=== PATIENT | male | born 1950 | race Caucasian/White ===

== ENCOUNTER 2017-03-20 09:59 | Inpatient (IN) | payer OTHER ==
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
[2017-03-20] MEDS ORDERED: HYDROmorphONE/DILAUDID 1 MG/ML SYR ONE ×3 (10:02→11:31)
[2017-03-20] MEDS ORDERED: IOPAMIDOL (ISOVUE-300) 100 ML BTL ONE (10:07)
[2017-03-20 10:22] LABS: % IMMATURE GRANULYOCYTES 0.6 % (0.0-1.1); ABSOLUTE IMMATURE GRANULOCYTES 0.06 10^3/uL (0.00-0.10); ADD DIFF? NO; ADD MORPH? NO; ADD SCAN? NO; ATYPICAL LYMPHOCYTE FLAG 0 (0-99); FRAGMENT RBC FLAG 0 (0-99); HEMATOCRIT 46.3 % (40.0-51.0); HEMOGLOBIN 16.4 g/dL (13.7-17.5); LEFT SHIFT FLG 10 (0-99); LIPEMIA HEMOLYSIS FLAG 90 (0-99); MEAN CELL HEMOGLOBIN 31.8 pg (27.9-34.1); MEAN CELL HEMOGLOBIN CONCENTR. 35.4 g/dL (32.4-36.7); MEAN CELL VOLUME 89.9 fL (81.5-99.8); MEAN PLATELET VOLUME 11.5 fL (8.7-11.7); PLATELET CLUMPS FLAG 10 (0-99); PLATELET COUNT 163 10^3/uL (150-400); RED BLOOD CELL COUNT 5.15 10^6/uL (4.40-6.38); RED CELL DISTRIBUTION WIDTH 12.5 % (11.5-15.2)
[2017-03-20] MEDS ORDERED: LET GEL TOPICAL 1 EA SYR TP ONE (10:30)
[2017-03-20 10:32] LABS: INR 2.22 (0.83-1.16); PROTIME(PATIENT) 24.8 SEC (12.0-15.0)
[2017-03-20 10:33] LABS: APTT 35.1 SEC (23.0-38.0)
[2017-03-20] MEDS ORDERED: HYDROmorphONE/DILAUDID 2 MG/ML INJ IVP ONE ×2 (10:36→12:28)
[2017-03-20 10:46] LABS: ANION GAP 13 mEq/L (8-16); CALCIUM 9.8 mg/dL (8.5-10.4); CARBON DIOXIDE 23 mEq/l (22-31); CHLORIDE 104 mEq/L (97-110); CREATININE 0.7 mg/dL (0.7-1.3); GLOMERULAR FILTRATION RATE > 60; GLUCOSE 88 mg/dL (70-100); SODIUM 140 mEq/L (134-144)
[2017-03-20] MEDS ORDERED: PHYTONADIONE 10 MG in NS 50 ML IV ONE (11:29)
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
[2017-03-20] MEDS ORDERED: ONDANSETRON 4 MG/2 ML VIAL IVP PRN (13:10)
[2017-03-20] MEDS: HYDROCODONE/APAP 5/325 TAB PO PRN ×2 (13:43→15:23)
[2017-03-20] MEDS: DIAZEPAM 5 MG TAB PO PRN ×3 (13:43→21:24)
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
[2017-03-20] MEDS ORDERED: IBUPROFEN 600 MG TAB PO SCH (14:00)
[2017-03-20] MEDS ORDERED: LACTULOSE 20 GM/30 ML UDCUP PO PRN (16:27)
[2017-03-20] MEDS ORDERED: MAGNESIUM HYDROXIDE 30 ML UDCUP PO PRN (16:27)
[2017-03-20] MEDS ORDERED: POLYETHYLENE GLYCOL 3350 17 GM PKT PO PRN (16:27)
[2017-03-20] MEDS ORDERED: BISACODYL 10 MG SUPP PR PRN (16:27)
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
[2017-03-20] MEDS: HYDROmorphONE/DILAUDID 2 MG TAB PO PRN ×2 (17:30→21:24)
[2017-03-20] MEDS: HYDROmorphONE/DILAUDID 1 MG/ML SYR IVP PRN (17:30)
[2017-03-20] MEDS ORDERED: ceFAZolin 2 GM/DEXTROSE 100 ML IV ONE (18:56)
[2017-03-20] MEDS ORDERED: FAMOTIDINE 20 MG TAB PO ONE (18:56)
[2017-03-20 19:59] LABS: INR 1.57 (0.83-1.16); PROTIME(PATIENT) 18.8 SEC (12.0-15.0)
[2017-03-20] MEDS: SENNOSIDES/DOCUSATE SODIUM TAB PO SCH (21:25)
[2017-03-21] MEDS: DIAZEPAM 5 MG TAB PO PRN ×2 (04:22→20:23)
[2017-03-21] MEDS: HYDROmorphONE/DILAUDID 2 MG TAB PO PRN ×2 (04:23→20:23)
[2017-03-21 04:58] LABS: INR 1.27 (0.83-1.16); PROTIME(PATIENT) 15.9 SEC (12.0-15.0)
[2017-03-21] MEDS ORDERED: POLYMYXIN B SULFATE 500,000 UNIT/10 ML SYR IRR ONE (07:14)
[2017-03-21] MEDS ORDERED: BUPIVACAINE/EPI 0.5% 30 ML SDV ONE (07:14)
[2017-03-21] MEDS ORDERED: BACITRACIN 50,000 UNITS/10 ML SYR IRR ONE (07:15)
[2017-03-21] MEDS: HYDROmorphONE/DILAUDID 1 MG/ML SYR IVP PRN ×2 (07:21→14:29)
[2017-03-21] MEDS ORDERED: CEFAZOLIN 2 GM/DEXTROSE/100 ML BAG IV ONE (07:52)
[2017-03-21] MEDS ORDERED: MIDAZOLAM 2 MG/2 ML VIAL ONE (08:01)
[2017-03-21] MEDS ORDERED: fentaNYL 100 MCG/2 ML INJ ONE ×4 (08:03→11:48)
[2017-03-21] MEDS ORDERED: PROPOFOL/EMULSION 500 MG/50 ML BOTTLE IV ONE ×2 (08:04)
[2017-03-21] MEDS ORDERED: ROCURONIUM 100 MG/10 ML VIAL ONE (08:51)
[2017-03-21] MEDS ORDERED: GLYCOPYRROLATE 0.2 MG/1 ML VIAL ONE ×3 (08:51→11:20)
[2017-03-21] MEDS ORDERED: ONDANSETRON 4 MG/2 ML VIAL ONE (09:05)
[2017-03-21] MEDS ORDERED: DEXAMETHASONE 4 MG/ML VIAL ONE (09:05)
[2017-03-21] MEDS: SENNOSIDES/DOCUSATE SODIUM TAB PO SCH ×2 (09:58→20:28)
[2017-03-21] MEDS ORDERED: NEOSTIGMINE METHYLSULFATE 5 MG/5 ML SYR ONE (11:20)
[2017-03-21] MEDS ORDERED: CYCLOBENZAPRINE 10 MG TAB PO PRN (11:29)
[2017-03-21] MEDS ORDERED: DIPHENOXYLATE/ATROPINE LOMOTIL 1 TAB PO PRN (11:29)
[2017-03-21] MEDS ORDERED: PROMETHAZINE HCL 25 MG/ML INJ IVP PRN (11:29)
[2017-03-21] MEDS ORDERED: METOCLOPRAMIDE 10 MG/2 ML VIAL IVP PRN (11:29)
[2017-03-21] MEDS ORDERED: TEMAZEPAM 15 MG CAP PO PRN (11:29)
[2017-03-21] MEDS ORDERED: diphenhydrAMINE 25 MG CAP PO PRN (11:29)
[2017-03-21] MEDS ORDERED: PHARMACY PAIN CONSULT 1 EA MISC PRN (11:29)
--- NOTE | 2017-03-21 11:29 | POSTOPPROG ---
Post Op Note Date of Operation: 03/21/17 Surgeon: Lizandro Ariza Cap Coverer: Jimenez Osorio PA-C Pre-op Diagnosis: Right subcapital femur fracture Post-op Diagnosis: Right subcapital femur fracture Procedure: Right total hip arthroplasty w/ acetabular bone graft Findings: As above, please see full dictation for detains Inf/Abcess present in the surg proc area at time of surgery?: No Depth: Deep Incisional (Fascial) EBL: Greater than 1000 Complications: None Drains: Hemovac
[2017-03-21] MEDS ORDERED: LR 1,000 ML IV SCH (11:30)
[2017-03-21] MEDS ORDERED: HYDROmorphONE/DILAUDID 2 MG/ML INJ ONE (11:48)
[2017-03-21] MEDS ORDERED: ACETAMINOPHEN 325 MG TAB PO SCH (12:00)
--- NOTE | 2017-03-21 12:12 | GOP ---
[f rep st] OPERATIVE REPORT DATE OF OPERATION: 03/20/2017 SURGEON: Lizandro Ariza MD FIELD SERVICE POULTRY TECHNICIAN: Jimenez. ANESTHESIA: General. PREOPERATIVE DIAGNOSIS: Right hip fracture, Garden 3 through the femoral neck. POSTOPERATIVE DIAGNOSIS: 1. Right hip fracture, Garden 3 through the femoral neck. 2. Mild osteoarthritis, right hip. PROCEDURE PERFORMED: Right total hip arthroplasty for right femoral neck fracture. FINDINGS: DESCRIPTION OF PROCEDURE: The patient was taken to the operative room, administered general anesthe jackelin, placed in the left lateral decubitus position, had his right hip and lower extremity prepped an d draped in normal sterile fashion. A posterior lateral incision was made just posterior to the are a of a skin excoriation. It was carried through dermal subcutaneous tissues. Sharp dissection was performed down to the level of the IT band. The IT band was split distally and extended proximally over the greater trochanter. The Charnley retractors were put in place. The hip was internally rot ated. The external rotators were brought under tension. The piriformis and external rotators were taken down using cautery. The femoral head was then levered out using a corkscrew. The fracture se gment was noted to be significantly displaced. The next segment was re-cut down to 1 cm level above the lesser trochanter. The acetabulum was then visualized and retractors were positioned. A moder ate amount of articular arthrosis was noted. Therefore, we proceeded with a total hip, rather than a bipolar. The fatty tissue was removed from Pulvinar. Reaming commenced with a size 48 and extend ed up to a size 63. We broached the medial wall, and therefore some bone graft was placed medially that was harvested from the femoral head. The cup trial was positioned. The trial insert was posit ioned. We subsequently addressed the femoral side. A box osteotome was used to remove bone from th e greater trochanter. A tapered starting reamer was placed down through the canal. The power reami ng began with a size 7, and extended up to a size 11. We then broached from a size 8 to a size 11. The trochanter was reamed laterally to get a little larger size 11 broach in. We subsequently tria led with a 0 degree neck length. Intraoperative films were initially taken, showing the head segmen t a little more medialized. We therefore went from the original trial cup and reamed up the acetabu lum a little larger. We ended up putting in a 64 titanium cup with holes. Three screws were placed superiorly using the drill guide system. These measured 45 mm in length x2 and 35 mm in length x1. Each screw had good purchase. The bone graft was packed behind the cup prior to its placement. Joyce howard subsequently placed the real liner in place. We elected to go with a 10 degree posterior liner sh suzy. This was impacted into position. The real stem was impacted into position. This was a Secure Fit Max 127 degree neck angle hip stem, size 11, with a 40 mm neck length. The trunnion was dried. A trial reduction was done with the 0, and this was felt to be appropriate, with leg lengths felt to be close to normal. We subsequently put the knee through a flexion internal rotation range of mo tion. It was felt to be stable. Extension, external rotation, and range of motion was felt to be s table. The trial head was brought out. A biologic Delta ceramic C taper femoral head was then impa cted onto position. This was a 36 mm outer diameter, +0 neck length head. We again trialed it with the real head in place, and it was felt to be stable. Thorough lavage was performed. The piriform is and posterior hip capsule was reapproximated using #2 Ethibond sutures brought through drill hole s in the greater trochanter. The iliotibial band was reapproximated with a #0 Vicryl suture in an i nterrupted [id number] fashion. A 3/16ths inch drain was placed deeply prior to closure. The s ubcutaneous tissues were closed with a 2-0 Vicryl suture, followed by closure of the dermis with sta ples. Sterile compression dressing was applied. The drain was hooked up. The patient was placed i nto HALIMA hose and pneumatic compression stockings. He tolerated the procedure well, was transferred back to recovery in stable condition. There were no operative complications. COMPLICATIONS: None. /[id number]/MODL
[2017-03-21 12:36] LABS: HEMATOCRIT 39.3 % (40.0-51.0); HEMOGLOBIN 13.9 g/dL (13.7-17.5)
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
[2017-03-21] MEDS: ceFAZolin 2 GM/DEXTROSE 100 ML IV SCH ×2 (14:33→21:56)
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
[2017-03-21] MEDS ORDERED: WARFARIN SODIUM 5 MG TAB PO ONE (16:00)
[2017-03-21] MEDS ORDERED: BACITRACIN OINTMENT 1 PACKET TP ONE (16:14)
[2017-03-21] MEDS: LIDOCAINE 5% 1 EA PATCH TD SCH (18:14)
[2017-03-21] MEDS: FAMOTIDINE 20 MG TAB PO SCH (20:28)
[2017-03-21] MEDS: PATCH REMOVAL 1 EA PATCH TD SCH (21:10)
[2017-03-21] MEDS: ACETAMINOPHEN 500 MG TAB PO SCH (21:55)
[2017-03-22 05:08] LABS: % IMMATURE GRANULYOCYTES 0.3 % (0.0-1.1); ABSOLUTE IMMATURE GRANULOCYTES 0.04 10^3/uL (0.00-0.10); ADD DIFF? NO; ADD MORPH? NO; ADD SCAN? NO; ATYPICAL LYMPHOCYTE FLAG 0 (0-99); FRAGMENT RBC FLAG 0 (0-99); HEMATOCRIT 29.4 % (40.0-51.0); LEFT SHIFT FLG 0 (0-99); LIPEMIA HEMOLYSIS FLAG 90 (0-99); MEAN CELL HEMOGLOBIN 31.2 pg (27.9-34.1); MEAN CELL VOLUME 91.6 fL (81.5-99.8); MEAN PLATELET VOLUME 11.7 fL (8.7-11.7); PLATELET CLUMPS FLAG 20 (0-99); PLATELET COUNT 127 10^3/uL (150-400); RED BLOOD CELL COUNT 3.21 10^6/uL (4.40-6.38); RED CELL DISTRIBUTION WIDTH 12.4 % (11.5-15.2)
[2017-03-22 05:19] LABS: INR 1.35 (0.83-1.16); PROTIME(PATIENT) 16.7 SEC (12.0-15.0)
[2017-03-22] MEDS: ACETAMINOPHEN 500 MG TAB PO SCH ×3 (05:20→21:44)
[2017-03-22 05:21] LABS: ANION GAP 5 mEq/L (8-16); CALCIUM 8.6 mg/dL (8.5-10.4); CARBON DIOXIDE 22 mEq/l (22-31); CHLORIDE 105 mEq/L (97-110); CREATININE 0.8 mg/dL (0.7-1.3); GLOMERULAR FILTRATION RATE > 60; GLUCOSE 136 mg/dL (70-100); POTASSIUM 4.5 mEq/L (3.5-5.2); SODIUM 132 mEq/L (134-144)
[2017-03-22] MEDS: FAMOTIDINE 20 MG TAB PO SCH ×3 (08:13→21:45)
[2017-03-22] MEDS: SENNOSIDES/DOCUSATE SODIUM TAB PO SCH ×2 (08:13→21:44)
--- NOTE | 2017-03-22 08:21 | TRAUMAPN ---
Assessment/Plan: PAD#1 POD#0 Assessment: Poor right breath sounds post op, Hx right 6&7 rib fx S/p right hip arthroplasty moderate bloody drainage in closed suction drainage system. INR 1.27 No other complaints confused as to year but otherwise intact neurologically Plan: CXR suggest holding anticoag with heparin drip until tomorrow PAD#2 POD#1 03/22/2017 Assessment: chest discomfort/rib pain discussed. his pain is 1 when sitting but spasm with movement takes him to an 8 or 9. CXR yesterday showed no PTX Pain control regimen discussed. Epidural offered but declined. No stool/flatus yet Abrasions stable S/P right hip arthroplasty Plan: Will await Dr Ariza's guidance as per discharge. Subjective: I have right rib pain with movement. Objective: Vital Signs Temp Pulse Resp BP Pulse Ox 36.8 C 74 18 113/62 95 03/22/17 08:00 03/22/17 08:00 03/22/17 08:00 03/22/17 08:00 03/22/17 08:00 Laboratory Results 03/22/17 04:25 03/22/17 04:25 03/21/17 03/22/17 03/23/17 05:59 05:59 05:59 Intake Total 5500 Output Total 750 2745 Balance -750 2755 PT 16.7 SEC (12.0-15.0) H 03/22/17 04:52 INR 1.35 (0.83-1.16) H 03/22/17 04:52 - C-Spine Clearance Cervical Spine Cleared: Yes Provider who Cleared Cervical Spine: Noe Physical Exam - Physical Exam General Appearance: WD/WN, alert, mild distress Neck: non-tender, full range of motion, supple Respiratory: lungs clear, normal breath sounds, other (right rib pain with movement. IS to > 2000) Cardiac/Chest: regular rate, rhythm Abdomen: normal bowel sounds, non-tender, soft Male Genitalia: deferred Rectal: deferred Back: Normal inspection Skin: normal color, warm/dry Neuro/Psych: no motor/sensory deficits, alert, normal mood/affect, oriented x 3 Time Spent w/Patient (minutes): 25
[2017-03-22] MEDS: oxyCODONE IR 5 MG TAB PO PRN ×2 (08:35→17:20)
--- NOTE | 2017-03-22 10:22 | SOAPPROG ---
SOAP Progress Note Assessment/Plan: Assessment/Plan: Right subcapital femur fracture s/p R JONI w/ acetabular bone graft perfomed by Dr. Ariza 03/20/2017, POD#1 -Cont PT/OT, pt is to be PWB on RLE, no more than 50#, posterior hip precuations -Cont current PO pain regimen as tolerated -Drain in place, output 445 overnight, likely d/c drain tomorrow am -Cont SCDs and TEDs for VTE mechanical prophylaxis -Hold warfarin per trauma service, pt on heparin drip. If pt is d/c'd on warfarin, will likely need cont management w/ Dr. Li -Possible d/c tomorrow pending PT/OT approval, successful PO pain management, and trauma service approval 03/22/17 10:19 03/22/17 13:41 Subjective: Pt seen at bedside. No complaints of significant pain at this time. He states he is tolerating his diet and medications well, and has been up w/ PT/OT. He is accompanied by his at time of exam. We have discussed the surgical findings, recuperative timeline, and criteria for discharge today. They have no additional concerns or complaints at this time. Objective: Vital Signs Temp Pulse Resp BP Pulse Ox 36.8 C 74 18 113/62 95 03/22/17 08:00 03/22/17 08:00 03/22/17 08:00 03/22/17 08:00 03/22/17 08:00 Laboratory Results 03/22/17 04:25 03/22/17 04:25 03/21/17 03/22/17 03/23/17 05:59 05:59 05:59 Intake Total 5500 Output Total 750 2745 Balance -750 2755 PT 16.7 SEC (12.0-15.0) H 03/22/17 04:52 INR 1.35 (0.83-1.16) H 03/22/17 04:52 A&Ox3, appropriate mood and affect, pleasant and cooperative with exam. VSS. Exam of RLE reveals post operative dressing, CDI, intact AMARA drain (output ~445 over last 24 hrs). No significant surrounding erythema, calor, discharge or induration noted. Thigh compartment is supple, post calves are NTTP, no palpable vascular cords, neg Kami's bilat. Abduction pillow in place. Pt has intact light touch sensation distally, and moves leg and foot well. DNVI BLE. ICD10 Worksheet Patient Problems: Problems Problem Status Onset Fracture of femoral neck Acute Multiple abrasions Acute Right rib fracture Acute Concussion with less than 1 hour loss of consciousness Active Fracture of acetabulum Active Kevan hematuria Active
[2017-03-22] MEDS: LIDOCAINE 5% 1 EA PATCH TD SCH (10:42)
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
[2017-03-22] MEDS: HYDROmorphONE/DILAUDID 2 MG TAB PO PRN (13:06)
[2017-03-22] MEDS ORDERED: WARFARIN SODIUM 5 MG TAB PO ONE (16:15)
[2017-03-22] MEDS: DIAZEPAM 5 MG TAB PO PRN (17:48)
[2017-03-22] MEDS: PATCH REMOVAL 1 EA PATCH TD SCH (21:55)
[2017-03-23 05:13] LABS: % IMMATURE GRANULYOCYTES 0.6 % (0.0-1.1); ABSOLUTE IMMATURE GRANULOCYTES 0.06 10^3/uL (0.00-0.10); ADD DIFF? NO; ADD MORPH? NO; ADD SCAN? NO; ATYPICAL LYMPHOCYTE FLAG 0 (0-99); FRAGMENT RBC FLAG 0 (0-99); HEMATOCRIT 28.8 % (40.0-51.0); HEMOGLOBIN 9.7 g/dL (13.7-17.5); LEFT SHIFT FLG 0 (0-99); LIPEMIA HEMOLYSIS FLAG 80 (0-99); MEAN CELL HEMOGLOBIN 31.5 pg (27.9-34.1); MEAN CELL HEMOGLOBIN CONCENTR. 33.7 g/dL (32.4-36.7); MEAN CELL VOLUME 93.5 fL (81.5-99.8); MEAN PLATELET VOLUME 11.5 fL (8.7-11.7); PLATELET CLUMPS FLAG 0 (0-99); PLATELET COUNT 131 10^3/uL (150-400); RED BLOOD CELL COUNT 3.08 10^6/uL (4.40-6.38); RED CELL DISTRIBUTION WIDTH 12.7 % (11.5-15.2)
[2017-03-23 05:22] LABS: INR 1.59 (0.83-1.16)
[2017-03-23] MEDS: ACETAMINOPHEN 500 MG TAB PO SCH ×3 (06:04→22:24)
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
[2017-03-23] MEDS ORDERED: BACITRACIN ZINC 14.2 GM OINTTUBE TP ONE (09:24)
--- NOTE | 2017-03-23 10:26 | POSTANESTH ---
Post Anesthetic Evaluation Cardiovascular Status: Normal, Stable Respiratory Status: Normal, Stable Level of Consciousness/Mental Status: Can Participate in Eval Pain Control: Adequate, Prn Tx Ordered Nausea/Vomiting Control: Adequate, Prn Tx Ordered Complications Possibly Related to Anesthesia: Other, See Comments (Pt. has memory of bone graft being used. No Pain. BIS used during procedure. No recall of OAW in PACU. Unclear if OR awareness. Right ribs painful.)
--- NOTE | 2017-03-23 11:35 | SOAPPROG ---
[facility] Progress Note Assessment/Plan: Assessment/Plan: s/p R JONI POD#2 - Continue pain management - Continue PT/OT - Partial weight bearing RLE, no more than 50 pounds, maintain hip precautions - Lovenox for VTE chemoprophylaxis - SCDs/TEDs for mechanical prophylaxis - Drain removal and dressing change today - Okay for discharge from an orthopedic standpoint 03/23/17 11:31 Subjective: Pt states he is doing well and has been up with PT. Rib pain is worse than the minimal pain in the R hip. Pt denies fever, chills, chest pain, SOB, abdominal pain, N/V/D, calf pain, numbness and tingling. Objective: Vital Signs Temp Pulse Resp BP Pulse Ox 37.5 C 72 14 105/56 L 92 03/23/17 07:52 03/23/17 09:35 03/23/17 09:35 03/23/17 07:52 03/23/17 09:35 Laboratory Results 03/23/17 05:02 03/22/17 04:25 03/22/17 03/23/17 03/24/17 05:59 05:59 05:59 Intake Total 5500 500 Output Total 2745 2225 600 Balance 2755 -1725 -600 PT 19.0 SEC (12.0-15.0) H 03/23/17 05:02 INR 1.59 (0.83-1.16) H 03/23/17 05:02 Physical Exam - Physical Exam General Appearance: alert, no apparent distress Peripheral Pulses: 2+: dorsalis-pedis (R), dorsalis-pedis (L) Skin: normal color, warm/dry, other (Incision site c/d/i) Extremities: normal capillary refill, No pedal edema, No calf tenderness, No swelling, No Kami's sign Neuro/Psych: no motor/sensory deficits, alert, normal mood/affect, oriented x 3 ICD10 Worksheet Patient Problems: Problems Problem Status Onset Fracture of femoral neck Acute Multiple abrasions Acute Right rib fracture Acute Concussion with less than 1 hour loss of consciousness Active Fracture of acetabulum Active Kevan hematuria Active
[2017-03-23] MEDS: LIDOCAINE 5% 1 EA PATCH TD SCH (11:39)
[2017-03-23] MEDS: ENOXAPARIN 100 MG/ML SYR SC SCH ×2 (11:39→22:21)
[2017-03-23] MEDS: SENNOSIDES/DOCUSATE SODIUM TAB PO SCH ×2 (11:40→22:25)
[2017-03-23] MEDS: FAMOTIDINE 20 MG TAB PO SCH ×2 (11:40→22:25)
[2017-03-23] MEDS: oxyCODONE IR 5 MG TAB PO PRN ×4 (12:02→22:28)
[2017-03-23] MEDS ORDERED: WARFARIN SODIUM 3 MG TAB PO SCH (17:15)
--- NOTE | 2017-03-23 17:29 | TRAUMAPN ---
Assessment/Plan: PAD#1 POD#0 Assessment: Poor right breath sounds post op, Hx right 6&7 rib fx S/p right hip arthroplasty moderate bloody drainage in closed suction drainage system. INR 1.27 No other complaints confused as to year but otherwise intact neurologically Plan: CXR suggest holding anticoag with heparin drip until tomorrow PAD#2 POD#1 03/22/2017 Assessment: chest discomfort/rib pain discussed. his pain is 1 when sitting but spasm with movement takes him to an 8 or 9. CXR yesterday showed no PTX Pain control regimen discussed. Epidural offered but declined. No stool/flatus yet Abrasions stable S/P right hip arthroplasty Plan: Will await Dr Ariza's guidance as per discharge. PAD#3 POD#2 03/23/2017 Assessment: As above pain with activity remains an issue. It precluded Physical/ Occupational therapy interaction today. Will try one dose of toredol to see if it is effective. Flatus but no stool yet. S/p right hip arthroplasty Plan: family and patient now interested in In Patient rehab Subjective: I'm feeling better this afternoon Objective: Vital Signs Temp Pulse Resp BP Pulse Ox 38.2 C 82 16 131/69 H 92 03/23/17 15:27 03/23/17 15:27 03/23/17 15:27 03/23/17 15:27 03/23/17 15:27 Laboratory Results 03/23/17 05:02 03/22/17 04:25 03/22/17 03/23/17 03/24/17 05:59 05:59 05:59 Intake Total 5500 500 Output Total 2745 2225 950 Balance 2755 -1725 -950 PT 19.0 SEC (12.0-15.0) H 03/23/17 05:02 INR 1.59 (0.83-1.16) H 03/23/17 05:02 - C-Spine Clearance Cervical Spine Cleared: Yes Provider who Cleared Cervical Spine: Noe Physical Exam - Physical Exam General Appearance: WD/WN, alert, mild distress Neck: non-tender, full range of motion, supple, normal inspection Respiratory: lungs clear, normal breath sounds, pain on movement Cardiac/Chest: regular rate, rhythm Abdomen: normal bowel sounds, non-tender, soft Male Genitalia: deferred Rectal: deferred Back: Normal inspection Skin: normal color, warm/dry Neuro/Psych: no motor/sensory deficits, alert, normal mood/affect, oriented x 3 Time Spent w/Patient (minutes): 25
[2017-03-23] MEDS ORDERED: KETOROLAC 30 MG/1 ML SDV IVP ONE (17:30)
[2017-03-23] MEDS: PATCH REMOVAL 1 EA PATCH TD SCH (22:30)
[2017-03-24] MEDS: oxyCODONE IR 5 MG TAB PO PRN ×4 (06:04→15:52)
[2017-03-24] MEDS: ACETAMINOPHEN 500 MG TAB PO SCH ×2 (06:05→14:38)
[2017-03-24 06:17] LABS: % IMMATURE GRANULYOCYTES 0.3 % (0.0-1.1); ABSOLUTE IMMATURE GRANULOCYTES 0.03 10^3/uL (0.00-0.10); ADD DIFF? NO; ADD MORPH? NO; ADD SCAN? NO; ATYPICAL LYMPHOCYTE FLAG 0 (0-99); FRAGMENT RBC FLAG 0 (0-99); HEMATOCRIT 28.6 % (40.0-51.0); HEMOGLOBIN 9.8 g/dL (13.7-17.5); LEFT SHIFT FLG 0 (0-99); LIPEMIA HEMOLYSIS FLAG 90 (0-99); MEAN CELL HEMOGLOBIN 31.5 pg (27.9-34.1); MEAN CELL HEMOGLOBIN CONCENTR. 34.3 g/dL (32.4-36.7); MEAN PLATELET VOLUME 11.2 fL (8.7-11.7); PLATELET CLUMPS FLAG 0 (0-99); PLATELET COUNT 163 10^3/uL (150-400); RED BLOOD CELL COUNT 3.11 10^6/uL (4.40-6.38); RED CELL DISTRIBUTION WIDTH 12.3 % (11.5-15.2)
[2017-03-24 06:26] LABS: INR 2.27 (0.83-1.16); PROTIME(PATIENT) 25.2 SEC (12.0-15.0)
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
[2017-03-24 07:00] LABS: ANION GAP 7 mEq/L (8-16); CALCIUM 8.3 mg/dL (8.5-10.4); CARBON DIOXIDE 23 mEq/l (22-31); CHLORIDE 103 mEq/L (97-110); CREATININE 0.8 mg/dL (0.7-1.3); GLOMERULAR FILTRATION RATE > 60; GLUCOSE 101 mg/dL (70-100); POTASSIUM 3.9 mEq/L (3.5-5.2); SODIUM 133 mEq/L (134-144)
[2017-03-24 07:45] VITALS: RESP 16
[2017-03-24] MEDS: SENNOSIDES/DOCUSATE SODIUM TAB PO SCH (08:59)
[2017-03-24] MEDS: FAMOTIDINE 20 MG TAB PO SCH (09:00)
[2017-03-24] MEDS: ENOXAPARIN 100 MG/ML SYR SC SCH (09:04)
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
[2017-03-24] MEDS: LIDOCAINE 5% 1 EA PATCH TD SCH (09:49)
[2017-03-24 11:22] VITALS: BP 115/74; PULSE 78; TEMP 99; O2SAT 93
--- NOTE | 2017-03-24 12:56 | SOAPPROG ---
[facility] Progress Note Assessment/Plan: Assessment: 66-YEAR-OLD MALE WITH 2 RIGHT RIB FRACTURES AND A RIGHT HIP FRACTURE / COMFORTABLE WITH STABLE VITAL SIGNS BUT COMPLAINS OF MUCH PAIN WITH HIS RIB FRACTURES THIS IS BEEN INTERFERING WITH HIS PHYSICAL THERAPY EFFORTS HEENT IS NEGATIVE /CHEST SYMMETRIC AND CLEAR / COR REGULAR RHYTHM / ABDOMEN SOFT NONTENDER/ EXTREMITIES WAS WELL-HEALING RIGHT HIP SURGERY SITE WITH LARGE AMOUNT OF ECCHYMOSIS AND ABLE TO USE TORADOL OR NSAID FOR HIS RIB PAIN BECAUSE OF HIS ANTICOAGULATION Plan: PT EVAL /QUESTIONABLE NEED FOR REHAB 03/24/17 12:53 Objective: Vital Signs Temp Pulse Resp BP Pulse Ox 37.2 C 78 16 115/74 93 03/24/17 11:20 03/24/17 11:20 03/24/17 11:20 03/24/17 11:20 03/24/17 11:20 Laboratory Results 03/24/17 06:05 03/24/17 06:05 03/23/17 03/24/17 03/25/17 05:59 05:59 05:59 Intake Total 500 2350 Output Total 2225 1625 Balance -1725 725 PT 25.2 SEC (12.0-15.0) H 03/24/17 06:05 INR 2.27 (0.83-1.16) H 03/24/17 06:05 ICD10 Worksheet Patient Problems: Problems Problem Status Onset Fracture of femoral neck Acute Multiple abrasions Acute Right rib fracture Acute Concussion with less than 1 hour loss of consciousness Active Fracture of acetabulum Active Kevan hematuria Active
--- NOTE | 2017-03-24 13:56 | PDIAF ---
- Diagnosis Diagnosis: s/p hip arthroplasty, fractured ribs, trauma, hx dvt and pe on coumadin Code Status: Full Code - Medication Management Discharge Medications: Medications to Continue on Transfer Warfarin Sodium [Jantoven] 4 mg PO SUTUWETHSA 03/20/17 [Last Taken 03/19/17] Warfarin Sodium [Jantoven] 6 mg PO MOFR 03/20/17 [Last Taken 03/20/17] Acetaminophen [Tylenol ES 500 mg (*)] 1,000 mg PO Q8 #0 tab 03/24/17 [Last Taken Unknown] Diazepam [Valium 5 MG (*)] 5 - 10 mg PO Q6HRS PRN #0 tab 03/24/17 [Last Taken Unknown] Famotidine [Pepcid 20 MG (*)] 20 mg PO BID #0 tab 03/24/17 [Last Taken Unknown] Lidocaine 5% [Lidoderm 5% Patch (*)] 1 ea TD DAILY #0 patch 03/24/17 [Last Taken Unknown] Patch Removal 1 ea TD DAILY21 #0 patch 03/24/17 [Last Taken Unknown] Polyethylene Glycol 3350 [Miralax 17 gm (*)] 17 gm PO DAILY PRN #0 pkt 03/24/17 [Last Taken Unknown] Sennosides/Docusate Sodium [Senokot-S] 1 - 2 tab PO BID #0 tab 03/24/17 [Last Taken Unknown] diphenhydrAMINE [Benadryl 25 MG (*)] 25 mg PO Q4HRS PRN #0 cap 03/24/17 [Last Taken Unknown] oxyCODONE IR [Oxycodone Ir (*)] 5 - 10 mg PO Q3HRS PRN #0 tab 03/24/17 [Last Taken Unknown] Sheet Hanger Antibiotics: n/a Discharge Medications: Refer to the Discharge Home Medication list for PRN reason. PICC Care - Routine: N/A - Orders Diet Recommendation: no restrictions on diet Diet Texture: Regular Texture Diet Wound Care Instructions: 1. Right subcapital femur fracture, s/p total hip arthroplasty with acetabular bone graft. Please see the following instructions regarding your joint replacement: Home care. - Please take your pain medicine exactly as directed. - Dont drive until your doctor says its OK. And never drive~while taking opioid pain medicine. - Wear the support stockings you were given in the hospital. Wear them for~24~hours~a day until follow up with Dr Ariza. - To relieve discomfort at night, get up and move around. - Tell all your healthcare providersincluding your dentistabout your artificial joint before any procedure. You may~need to take antibiotics before dental work and other medical procedures to reduce the risk of infection. - Make sure to schedule your first preoperative follow up w/ Dr. Ariza 10-14 days after your surgery. Other Medications. - You will continue to take a medication to minimize the risk of developing blood clots after surgery. Because of your previous history with DVT/PE, you will likely continue taking this medication until your prescribing physician has told you to stop. Once discharge, please contact their office for instructions on how to manage this medication, and to set up outpatient blood draws to appropriately dose this medication. Physical Therapy. - You have been provided with a prescription for physical therapy as an outpatient. Please continue to follow up with these providers at their instructed frequency unless instructed otherwise by Dr. Ariza. Incision care. - Check your incision daily for redness, swelling, tenderness, or drainage. - Avoid infection by washing your hands often. If an infection occurs, it will need to be treated immediately. So~call your doctor~ right away~if you think you may have an infection. Symptoms include a fever or an incision that leaks white, green, or yellow fluid. - Please keep your incision site clean and dry at all times, you may cover it with a waterproof barrier for showering. Avoid soaking your~incision in water (no hot tubs, bathtubs, swimming pools) until your doctor says its OK. - Dont rub the incision, or apply creams or lotions to it. And to avoid falling when showering , sit on a shower stool. Sitting and sleeping. - Dont sit for more than~30 to 45~minutes at a time. - Use chairs with arms, and sit with your knees slightly lower than your hips. Dont sit on low or sagging chairs or couches. - Dont lean forward while sitting. - Dont cross your legs. - Keep your feet flat on the floor. Dont turn your foot or leg inward. This stresses your hip joint. Moving safely. - Dont bend at the hip when you bend over. Don't bend at the waist to put on socks and shoes. And avoid picking up items from the floor. - Use a cane, crutches, a walker, or handrails until your balance, flexibility, and strength improve. And remember to ask for help from others when you need it. - Free up your hands so that you can use them to keep balance. Use a saroj pack, apron, or pockets to carry things. - Follow your doctors orders regarding how much weight to put on the affected leg. You have been instructed to be partial weight bearing on your right side, please put no more than 50 lbs of weight on the side where you had surgery. - Walk often and do~prescribed exercises as instructed. - Arrange your household to keep the items you need within reach. - Remove electrical cords, throw rugs, and anything else that may cause you to fall. - Use nonslip bath mats, grab bars, an elevated toilet seat, and a shower chair in your bathroom. Follow-up. - Make a follow-up appointment as directed in your discharge instrucions. When to call 911. Call 911 right away if you have any of the following: -Chest pain. -Shortness of breath. When to call your doctor. Call your doctor~ right away~if you have any of the following: -Hip pain gets worse. -Pain or swelling in your calf or leg not related to your incision. -Tenderness or redness in your calf. -Fever of~100.4F (38C) or higher, or as directed by your healthcare provider. -Shaking chills. -Swelling or redness at the incision site gets worse. -Fluid draining from the incision - Labs/Radiology PT/INR Date: 03/27/17 - Follow Up Care Current Providers and Referrals: Baljinder Justin MD [Medical Doctor] - follow up in 2 weeks Patient,NotPresent [Unknown] - As per Instructions Lizandro Ariza MD [Medical Doctor] - (Pt will follow up w/ Dr. Ariza 10-14 days postoperatively, or sooner with any additional concerns or complaints. He is encouraged to contact the office as soon as possible to schedule this appointment.)
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
[2017-03-24] MEDS ORDERED: WARFARIN SODIUM 4 MG TAB PO SCH (16:00)
== END 2017-03-24 16:33 | DRG 470 ==
LOC: EDUNIT# → F3N 13:05 → OBSVTOIN 13:11
PROVIDERS: ADMIT Surgery; ATTEND Surgery
PROC: 0SR904Z Replacement of Right Hip Joint with Ceramic on Polyethylene Synthetic Substitute, Open Approach (ICD-10-PCS; principal; 2017-03-20)
DX: S72.011A Unspecified intracapsular fracture of right femur, initial encounter for closed fracture (principal); S22.41XA Multiple fractures of ribs, right side, initial encounter for closed fracture; V18.9XXA Unspecified pedal cyclist injured in noncollision transport accident in traffic accident, initial encounter; Y92.410 Unspecified street and highway as the place of occurrence of the external cause; Y93.55 Activity, bike riding; D64.9 Anemia, unspecified; Z86.718 Personal history of other venous thrombosis and embolism; Z86.711 Personal history of pulmonary embolism; Z87.891 Personal history of nicotine dependence; Z79.01 Long term (current) use of anticoagulants
CPT/HCPCS: 82947-QW; 92507-GN; 92523-GN; 96365; 97116-GP; 97162-GP; 97166-GO; 97530-GP; 97535-GO; C1713; G0390; G8978-GP-CK; G8979-GP-CJ; G8987-GO-CJ; G8988-GO-CI; G9165-GN-CJ; G9166-GN-CH; J0690; J1100; J1170; J1650; J1885; J2250; J2405; J2704; J2710; J3010; J3430; P9017; Q9967

== ENCOUNTER 2017-03-24 15:30 | Inpatient (IN) | payer OTHER ==
[2017-03-24] MEDS ORDERED: DIAZEPAM 5 MG TAB PO PRN (17:25)
[2017-03-24] MEDS ORDERED: BISACODYL 10 MG SUPP PR PRN (17:26)
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
[2017-03-24] MEDS: oxyCODONE IR 5 MG TAB PO PRN (19:21)
[2017-03-24] MEDS ORDERED: MELATONIN 3 MG TAB PO SCH (21:00)
[2017-03-24] MEDS: ACETAMINOPHEN 500 MG TAB PO SCH (21:33)
[2017-03-24] MEDS: FAMOTIDINE 20 MG TAB PO SCH (21:34)
[2017-03-24] MEDS: PATCH REMOVAL 1 EA PATCH TD SCH (22:06)
[2017-03-25] MEDS: SENNOSIDES 1 TAB PO PRN ×2 (05:13→08:36)
[2017-03-25] MEDS: ACETAMINOPHEN 500 MG TAB PO SCH ×4 (05:13→21:06)
[2017-03-25] MEDS: oxyCODONE IR 5 MG TAB PO PRN ×5 (05:25→20:48)
[2017-03-25] MEDS: FAMOTIDINE 20 MG TAB PO SCH ×2 (08:34→20:48)
[2017-03-25 08:36] LABS: ANION GAP 9 mEq/L (8-16); CALCIUM 8.7 mg/dL (8.5-10.4); CARBON DIOXIDE 25 mEq/l (22-31); CHLORIDE 99 mEq/L (97-110); CREATININE 0.9 mg/dL (0.7-1.3); GLOMERULAR FILTRATION RATE > 60; GLUCOSE 98 mg/dL (70-100); POTASSIUM 4.1 mEq/L (3.5-5.2); SODIUM 133 mEq/L (134-144)
[2017-03-25 08:37] LABS: INR 2.64 (0.83-1.16); PROTIME(PATIENT) 28.5 SEC (12.0-15.0)
[2017-03-25] MEDS: POLYETHYLENE GLYCOL 3350 17 GM PKT PO PRN (08:37)
[2017-03-25 08:51] LABS: VITAMIN D 25-HYDROXY TOTAL 24.6 ng/mL (30-100)
[2017-03-25] MEDS ORDERED: LIDOCAINE 5% 1 EA PATCH TD SCH (09:00)
[2017-03-25] MEDS ORDERED: CHOLECALCIFEROL VIT D3 2,000 UNITS TAB/CAP PO SCH (09:15)
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
--- NOTE | 2017-03-25 09:27 | PDOREHIP ---
Admission [facility] - Admission - 3 Day Assessment Period Admission Date/Day 1: 03/24/17 Day 2: 03/25/17 Day 3: 03/26/17 - Active Diagnoses Comorbidities and Co-existing Conditions at Admission: 33094. None of the Above - Skin Conditions Unhealed Pressure Ulcer (1 or more/Stage 1 or >)-Admission: 0. No
[2017-03-25] MEDS: CHOLECALCIFEROL VIT D3 2,000 UNITS TAB/CAP PO SCH (12:26)
[2017-03-25] MEDS: LIDOCAINE 5% 1 EA PATCH TD SCH (12:27)
[2017-03-25] MEDS: CHOLECALCIFEROL VIT D3 2,000 UNITS TAB/CAP PO ONE ×2 (13:39→13:43)
[2017-03-25] MEDS ORDERED: MELATONIN 3 MG TAB PO PRN (16:34)
[2017-03-25] MEDS ORDERED: MAGNESIUM HYDROXIDE 30 ML UDCUP PO PRN (17:07)
[2017-03-25] MEDS: WARFARIN SODIUM 4 MG TAB PO SCH (17:24)
[2017-03-25] MEDS: PATCH REMOVAL 1 EA PATCH TD SCH (21:07)
[2017-03-26] MEDS: ACETAMINOPHEN 500 MG TAB PO SCH ×3 (05:42→20:25)
[2017-03-26] MEDS: oxyCODONE IR 5 MG TAB PO PRN ×4 (06:27→20:13)
[2017-03-26] MEDS: LIDOCAINE 5% 1 EA PATCH TD SCH ×2 (08:56→11:35)
[2017-03-26] MEDS: CHOLECALCIFEROL VIT D3 2,000 UNITS TAB/CAP PO SCH (08:56)
[2017-03-26] MEDS: FAMOTIDINE 20 MG TAB PO SCH ×2 (08:56→20:12)
[2017-03-26] MEDS: POLYETHYLENE GLYCOL 3350 17 GM PKT PO PRN (08:57)
[2017-03-26] MEDS: SENNOSIDES 1 TAB PO PRN (08:57)
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
[2017-03-26] MEDS ORDERED: oxyCODONE IR 5 MG TAB PO ONE (13:00)
[2017-03-26] MEDS: WARFARIN SODIUM 4 MG TAB PO SCH (16:13)
[2017-03-26] MEDS: PATCH REMOVAL 1 EA PATCH TD SCH (20:25)
[2017-03-27] MEDS: ACETAMINOPHEN 500 MG TAB PO SCH (06:17)
[2017-03-27] MEDS: CHOLECALCIFEROL VIT D3 2,000 UNITS TAB/CAP PO SCH (07:33)
[2017-03-27] MEDS: FAMOTIDINE 20 MG TAB PO SCH ×2 (07:33→20:22)
[2017-03-27] MEDS: SENNOSIDES 1 TAB PO PRN (07:33)
[2017-03-27] MEDS: LIDOCAINE 5% 1 EA PATCH TD SCH (07:33)
[2017-03-27] MEDS: oxyCODONE IR 5 MG TAB PO PRN ×3 (07:34→17:14)
[2017-03-27] MEDS: POLYETHYLENE GLYCOL 3350 17 GM PKT PO PRN (07:34)
[2017-03-27 08:17] LABS: ANION GAP 7 mEq/L (8-16); CALCIUM 8.3 mg/dL (8.5-10.4); CARBON DIOXIDE 25 mEq/l (22-31); CHLORIDE 101 mEq/L (97-110); CREATININE 0.9 mg/dL (0.7-1.3); GLOMERULAR FILTRATION RATE > 60; GLUCOSE 85 mg/dL (70-100); POTASSIUM 4.2 mEq/L (3.5-5.2); SODIUM 133 mEq/L (134-144)
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
[2017-03-27 13:44] LABS: % IMMATURE GRANULYOCYTES 0.7 % (0.0-1.1); ABSOLUTE IMMATURE GRANULOCYTES 0.06 10^3/uL (0.00-0.10); ADD DIFF? NO; ADD MORPH? NO; ADD SCAN? NO; ATYPICAL LYMPHOCYTE FLAG 0 (0-99); FRAGMENT RBC FLAG 0 (0-99); HEMATOCRIT 29.6 % (40.0-51.0); HEMOGLOBIN 9.9 g/dL (13.7-17.5); LEFT SHIFT FLG 0 (0-99); LIPEMIA HEMOLYSIS FLAG 80 (0-99); MEAN CELL HEMOGLOBIN 31.1 pg (27.9-34.1); MEAN CELL HEMOGLOBIN CONCENTR. 33.4 g/dL (32.4-36.7); MEAN CELL VOLUME 93.1 fL (81.5-99.8); MEAN PLATELET VOLUME 11.2 fL (8.7-11.7); PLATELET CLUMPS FLAG 0 (0-99); PLATELET COUNT 329 10^3/uL (150-400); RED BLOOD CELL COUNT 3.18 10^6/uL (4.40-6.38); RED CELL DISTRIBUTION WIDTH 12.3 % (11.5-15.2)
[2017-03-27] MEDS: ACETAMINOPHEN 500 MG TAB PO PRN (13:48)
[2017-03-27 14:18] LABS: ANION GAP 13 mEq/L (8-16); CALCIUM 9.1 mg/dL (8.5-10.4); CARBON DIOXIDE 25 mEq/l (22-31); CHLORIDE 96 mEq/L (97-110); CREATININE 0.9 mg/dL (0.7-1.3); GLOMERULAR FILTRATION RATE > 60; GLUCOSE 96 mg/dL (70-100); POTASSIUM 4.3 mEq/L (3.5-5.2); SODIUM 134 mEq/L (134-144)
[2017-03-27 14:42] LABS: SEDIMENTATION RATE 71 MM/HR (0-20)
--- NOTE | 2017-03-27 16:59 | WOCRNPDOC ---
MORGAN Advanced Assessment Note - Skin Integrity Problem, Advanced Assess Right Hip Surgical Wound/Incision Dressing Type: Abdominal Pads Dressing Description: Clean/Dry, Intact Closure Description: [place], Approximated Exudate Amount: Scant Exudate Color: Reddish/Yellow Exudate Characteristic(s): Serosanguinous Integumentary Issue Intervention: Dressing Applied, Dressing Initialed & Dated Ramona Wound Tissue: Ecchymotic Ramona Wound Swelling: None Site Measurement - Head-to-Toe Length X Width X Depth (cm): 17cm long incision over R hip Skin Integrity Problem Comment: Well-approximated incision over R hip w/ intact trish, minimal, clear serosanguinous exudate noted. Ecchymosis ramona-wound, no swelling or erythema noted. Patient currently denies any increase in pain. Applied incisional dressing w/ silver to confer antimicrobial benefit, but patient at this point does not have any outward signs of infection to this site. Please reconsult wound care as needed. Right Hip Puncture Wound Dressing Type: Abdominal Pads Dressing Description: Intact Exudate Amount: Scant Exudate Characteristic(s): Serosanguinous Integumentary Issue Intervention: Dressing Applied, Dressing Changed, Dressing Initialed & Dated Ramona Wound Swelling: None Wound Bed Color: Red Wound Edges: Epithelizing Skin Integrity Problem Comment: Small, discrete opening at former AMARA drain site , w/ red, beefy tissue noted at opening and minimal exudate. There is no induration, erythema, or swelling in surrounding tissues. Applied bordered foam dressing over site, w/ order to change pRN saturation. Right Lower Arm Abrasion Dressing Type: Adaptic Touch, Nu, Telfa Dressing Description: Clean/Dry, Intact Exudate Amount: Scant Exudate Color: Reddish/Yellow Exudate Characteristic(s): Dried Integumentary Issue Intervention: Dressing Applied, Dressing Changed, Dressing Initialed & Dated Ramona Wound Tissue: Raw Armona Wound Swelling: None Wound Bed Color: [place], Red, Yellow Wound Bed Constitution: Granulation Tissue, Scab, Adhered Slough Wound Edges: Epithelizing Skin Integrity Problem Comment: Scattered abrasions noted to patient's R lower arm, in various stages of healing and epithelializing along margins. There is one area, approximately 2x2cm distal to the elbow which has adhered, dry slough in the wound bed. Other sites are a mix of granulating and smooth tissues. Applied wound gel along w/ cut square of [place] honey sheet over the area of slough to promote autolysis, and wound gel throughout the remainder of the abrasion, followed by contact layer and absorbent pad. Discussed importance of moist wound healing with patient. Wound care does not need to follow this patient going forward. Please reconsult as neeed.
[2017-03-27] MEDS: WARFARIN SODIUM 3 MG TAB PO SCH (17:15)
--- NOTE | 2017-03-27 19:49 | SOAPPROG ---
SOAP Progress Note Assessment/Plan: Assessment: Doubt deep infection. Serous drainage residual from hematoma. Plan: will use lightly applies compression wrap around thigh and buttocks. Hold antibiotics. 03/27/17 19:45 Subjective: Minimal discomfort. I do not feel sick Objective: Vital Signs Temp Pulse Resp BP Pulse Ox 37.1 C 72 16 121/75 H 96 03/27/17 18:37 03/27/17 18:37 03/27/17 18:37 03/27/17 18:37 03/27/17 18:37 Microbiology 03/27/17 13:37 Gram Stain - Final Leg - Swab 03/27/17 13:37 Gram Stain - Final Leg - Swab 03/27/17 13:37 Gram Stain - Final Hip - Swab Laboratory Results 03/27/17 13:37 03/27/17 13:37 03/26/17 03/27/17 03/28/17 05:59 05:59 05:59 Intake Total 1330 4580 1720 Output Total 1400 3150 1200 Balance -70 1430 520 PT 28.5 SEC (12.0-15.0) H 03/25/17 06:40 INR 2.64 (0.83-1.16) H 03/25/17 06:40 afebrile Mild serous drainage. No surrounding erythema Thigh moderately swollen secondary to post op hematoma. Skin moderately echymotic ICD10 Worksheet Patient Problems: Problems Problem Status Onset Concussion with less than 1 hour loss of consciousness Active Fracture of acetabulum Active Kevan hematuria Active Fracture of femoral neck Acute Multiple abrasions Acute Right rib fracture Acute
[2017-03-27] MEDS: PATCH REMOVAL 1 EA PATCH TD SCH (20:23)
[2017-03-27] MEDS: MELATONIN 3 MG TAB PO SCH (21:08)
[2017-03-28] MEDS: oxyCODONE IR 5 MG TAB PO PRN ×4 (06:56→21:56)
[2017-03-28] MEDS: FAMOTIDINE 20 MG TAB PO SCH ×2 (08:46→20:10)
[2017-03-28] MEDS: CHOLECALCIFEROL VIT D3 2,000 UNITS TAB/CAP PO SCH (08:47)
[2017-03-28] MEDS: POLYETHYLENE GLYCOL 3350 17 GM PKT PO PRN (08:56)
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
[2017-03-28 12:13] LABS: MEAN CELL HEMOGLOBIN CONCENTR. 33.3 g/dL (32.4-36.7); MEAN CELL VOLUME 93.1 fL (81.5-99.8); RED BLOOD CELL COUNT 2.9 10^6/uL (4.40-6.38); RED CELL DISTRIBUTION WIDTH 12.6 % (11.5-15.2)
[2017-03-28] MEDS: ACETAMINOPHEN 500 MG TAB PO PRN ×2 (12:13→20:11)
[2017-03-28] MEDS: WARFARIN SODIUM 4 MG TAB PO SCH (16:06)
[2017-03-28] MEDS: MELATONIN 3 MG TAB PO SCH (20:11)
[2017-03-28] MEDS: PATCH REMOVAL 1 EA PATCH TD SCH (20:14)
[2017-03-29] MEDS: oxyCODONE IR 5 MG TAB PO PRN ×3 (05:39→20:12)
[2017-03-29 07:09] LABS: % IMMATURE GRANULYOCYTES 0.9 % (0.0-1.1); ABSOLUTE IMMATURE GRANULOCYTES 0.05 10^3/uL (0.00-0.10); ADD DIFF? NO; ADD MORPH? NO; ADD SCAN? NO; ATYPICAL LYMPHOCYTE FLAG 30 (0-99); FRAGMENT RBC FLAG 0 (0-99); HEMATOCRIT 29.9 % (40.0-51.0); HEMOGLOBIN 9.7 g/dL (13.7-17.5); LEFT SHIFT FLG 0 (0-99); LIPEMIA HEMOLYSIS FLAG 80 (0-99); MEAN CELL HEMOGLOBIN 30.8 pg (27.9-34.1); MEAN CELL HEMOGLOBIN CONCENTR. 32.4 g/dL (32.4-36.7); MEAN CELL VOLUME 94.9 fL (81.5-99.8); MEAN PLATELET VOLUME 10.8 fL (8.7-11.7); PLATELET CLUMPS FLAG 10 (0-99); PLATELET COUNT 326 10^3/uL (150-400); RED BLOOD CELL COUNT 3.15 10^6/uL (4.40-6.38); RED CELL DISTRIBUTION WIDTH 12.8 % (11.5-15.2)
[2017-03-29] MEDS: CHOLECALCIFEROL VIT D3 2,000 UNITS TAB/CAP PO SCH (08:41)
[2017-03-29] MEDS: FAMOTIDINE 20 MG TAB PO SCH ×2 (08:41→20:12)
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
[2017-03-29] MEDS: WARFARIN SODIUM 4 MG TAB PO SCH (15:31)
[2017-03-29] MEDS: MELATONIN 3 MG TAB PO SCH (20:12)
[2017-03-29] MEDS: PATCH REMOVAL 1 EA PATCH TD SCH (21:06)
[2017-03-30] MEDS: LIDOCAINE 5% 1 EA PATCH TD SCH (07:40)
[2017-03-30] MEDS: FAMOTIDINE 20 MG TAB PO SCH ×2 (07:40→20:02)
[2017-03-30] MEDS: CHOLECALCIFEROL VIT D3 2,000 UNITS TAB/CAP PO SCH (07:40)
[2017-03-30] MEDS: POLYETHYLENE GLYCOL 3350 17 GM PKT PO PRN (07:41)
[2017-03-30] MEDS: oxyCODONE IR 5 MG TAB PO PRN ×4 (07:41→20:03)
[2017-03-30] MEDS: SENNOSIDES 1 TAB PO PRN (07:41)
[2017-03-30 08:23] LABS: INR 2.6 (0.83-1.16); PROTIME(PATIENT) 28.1 SEC (12.0-15.0)
[2017-03-30] MEDS: ACETAMINOPHEN 500 MG TAB PO PRN (11:22)
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
[2017-03-30] MEDS: WARFARIN SODIUM 3 MG TAB PO SCH (17:02)
[2017-03-30 18:43] VITALS: RESP 18; O2SAT 91
[2017-03-30] MEDS: MELATONIN 3 MG TAB PO SCH (20:03)
[2017-03-30] MEDS: PATCH REMOVAL 1 EA PATCH TD SCH (20:16)
[2017-03-31 06:28] VITALS: PULSE 94; TEMP 98
[2017-03-31] MEDS: ACETAMINOPHEN 500 MG TAB PO PRN (07:23)
[2017-03-31] MEDS: oxyCODONE IR 5 MG TAB PO PRN ×3 (07:23→12:28)
[2017-03-31 09:04] VITALS: BP 116/70
[2017-03-31] MEDS: SENNOSIDES 1 TAB PO PRN (09:05)
[2017-03-31] MEDS: FAMOTIDINE 20 MG TAB PO SCH (09:05)
[2017-03-31] MEDS: CHOLECALCIFEROL VIT D3 2,000 UNITS TAB/CAP PO SCH (09:05)
[2017-03-31] MEDS: LIDOCAINE 5% 1 EA PATCH TD SCH (09:07)
[2017-03-31] MEDS: WARFARIN SODIUM 4 MG TAB PO SCH (09:11)
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
== END 2017-03-31 14:06 | disposition home or self-care (01) | DRG 561 ==
LOC: BREH 16:55
PROVIDERS: ADMIT Internal Medicine; ATTEND Internal Medicine
PROC: F0636ZZ Communicative/Cognitive Integration Skills Treatment of Neurological System - Whole Body (ICD-10-PCS; principal; 2017-03-24)
PROC: F08Z4ZZ Home Management Treatment (ICD-10-PCS; principal; 2017-03-24)
PROC: F07M3ZZ Motor Function Treatment of Musculoskeletal System - Whole Body (ICD-10-PCS; principal; 2017-03-24)
DX: Z47.1 Aftercare following joint replacement surgery (principal); S72.001D Fracture of unspecified part of neck of right femur, subsequent encounter for closed fracture with routine healing; S32.401D Unspecified fracture of right acetabulum, subsequent encounter for fracture with routine healing; Z96.641 Presence of right artificial hip joint; S06.0X9D Concussion with loss of consciousness of unspecified duration, subsequent encounter; R41.840 Attention and concentration deficit; R41.844 Frontal lobe and executive function deficit; S22.41XD Multiple fractures of ribs, right side, subsequent encounter for fracture with routine healing; V19.3XXD Pedal cyclist (driver) (passenger) injured in unspecified nontraffic accident, subsequent encounter; Z79.01 Long term (current) use of anticoagulants; Z86.718 Personal history of other venous thrombosis and embolism; Z86.711 Personal history of pulmonary embolism
CPT/HCPCS: 92507-GN; 92522-GN; 97110-GP; 97116-GP; 97161-GP; 97165-GO; 97530-GO; 97530-GP; 97535-GO

== ENCOUNTER 2018-11-13 12:17 | Inpatient (IN) | payer OTHER ==
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
[2018-11-13 14:05] LABS: PLATELET COUNT 156 10^3/uL (150-400)
[2018-11-13 14:14] LABS: INR 2.41 (0.83-1.16); PROTIME(PATIENT) 26.2 SEC (12.0-15.0)
--- NOTE | 2018-11-13 14:16 | PDGENHP ---
History and Physical History and Physical: spoke with ER spoke with [facility] chart reviewed Images reviewed NPO since 9am plan for surgery at 5pm. percutaneous screws L hip.
[2018-11-13] MEDS ORDERED: ACETAMINOPHEN 325 MG TAB PO PRN (14:52)
[2018-11-13] MEDS ORDERED: LORazepam 2 MG/ML INJ IVP PRN (14:52)
[2018-11-13] MEDS ORDERED: NALOXONE HCL 0.4 MG/ML INJ IVP PRN ×2 (14:52→17:55)
[2018-11-13] MEDS ORDERED: ONDANSETRON 4 MG/2 ML VIAL IVP PRN ×2 (14:52→17:55)
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
[2018-11-13] MEDS ORDERED: BUPIVACAINE 0.5% 30 ML SDV ONE (16:35)
[2018-11-13] MEDS ORDERED: CEFAZOLIN 2 GM/DEXTROSE/100 ML BAG IV ONE (16:59)
[2018-11-13] MEDS ORDERED: MIDAZOLAM 2 MG/2 ML VIAL ONE (17:05)
[2018-11-13] MEDS ORDERED: MIDAZOLAM 2 MG/2 ML VIAL IVP ONE (17:06)
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
[2018-11-13] MEDS ORDERED: ROPIVACAINE HCL 20 MG/10 ML INJ EP ONE (17:10)
[2018-11-13] MEDS ORDERED: PROPOFOL/EMULSION 500 MG/50 ML BOTTLE IV ONE (17:15)
[2018-11-13] MEDS ORDERED: fentaNYL 100 MCG/2 ML INJ ONE (17:15)
[2018-11-13] MEDS ORDERED: LIDOCAINE 2% JELLY 6 ML TOPICAL SYR ONE (17:21)
[2018-11-13] MEDS ORDERED: ceFAZolin 2 GM/DEXTROSE 100 ML IV ONE (17:30)
[2018-11-13] MEDS ORDERED: ePHEDrine SULFATE 25 MG/5 ML SYR ONE (17:35)
[2018-11-13] MEDS ORDERED: ONDANSETRON 4 MG/2 ML VIAL ONE (17:36)
[2018-11-13] MEDS ORDERED: DEXAMETHASONE 4 MG/ML VIAL ONE ×2 (17:36)
[2018-11-13] MEDS ORDERED: ACETAMINOPHEN 500 MG TAB PO PRN (17:55)
[2018-11-13] MEDS ORDERED: LABETALOL HCL 5 MG/ML 20 ML MDV IVP PRN (17:55)
[2018-11-13] MEDS ORDERED: PHENYLEPHRINE HCL 100 MCG/ML SYR IVP PRN (17:55)
[2018-11-13] MEDS ORDERED: MEPERIDINE 25 MG/0.5 ML AMP IVP PRN (17:55)
[2018-11-13] MEDS ORDERED: HYDROCODONE/APAP 5/325 TAB PO PRN (17:55)
[2018-11-13] MEDS ORDERED: DEXAMETHASONE 4 MG/ML VIAL IVP PRN (17:55)
[2018-11-13] MEDS ORDERED: fentaNYL 100 MCG/2 ML INJ IVP PRN (17:55)
[2018-11-13] MEDS ORDERED: PROMETHAZINE HCL 25 MG/ML INJ IVP PRN (17:55)
[2018-11-13] MEDS ORDERED: LR 500 ML IV PRN (17:55)
[2018-11-13] MEDS ORDERED: ALBUTEROL 3 ML DEYVIAL IH PRN (17:55)
[2018-11-13] MEDS ORDERED: oxyCODONE IR 5 MG TAB PO PRN (17:55)
[2018-11-13] MEDS ORDERED: METOCLOPRAMIDE 10 MG/2 ML VIAL IVP PRN (17:55)
--- NOTE | 2018-11-13 18:23 | POSTOPPROG ---
Post Op Note Date of Operation: 11/13/18 Surgeon: Jeffrey Stroud Anesthesiologist: Dr onofre Pre-op Diagnosis: L hip basicervical fem neck fx Procedure: CRPP Inf/Abcess present in the surg proc area at time of surgery?: No
--- NOTE | 2018-11-13 18:24 | SOAPPROG ---
SOAP Progress Note Assessment/Plan: Assessment: Plan: Subjective: OK to restart Coumadin from an Orthopedic perspective Please verify with Neurosurgery team Objective: Vital Signs Temp Pulse Resp BP Pulse Ox 36.0 C 82 12 95/57 L 99 11/13/18 18:13 11/13/18 17:08 11/13/18 18:21 11/13/18 18:21 11/13/18 18:21 Laboratory Results 11/13/18 13:45 11/13/18 13:45 11/12/18 11/13/18 11/14/18 05:59 05:59 05:59 Intake Total 900 Output Total 25 Balance 875 PT 26.2 SEC (12.0-15.0) H 11/13/18 13:45 INR 2.41 (0.83-1.16) H 11/13/18 13:45 ICD10 Worksheet Patient Problems: Problems Problem Status Onset Fracture of femoral neck Acute Traumatic subarachnoid hemorrhage Acute Concussion with less than 1 hour loss of consciousness Active Fracture of acetabulum Active Kevan hematuria Active Multiple abrasions Acute Right rib fracture Acute
[2018-11-13] MEDS ORDERED: D5W 1/2 NS W/ 20 KCl/L 1,000 ML IV SCH (18:30)
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
[2018-11-13] MEDS ORDERED: HYDROmorphONE/DILAUDID 2 MG/ML INJ ONE (18:46)
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
[2018-11-13] MEDS: HYDROmorphONE/DILAUDID 2 MG/ML INJ IVP PRN ×3 (18:50→19:10)
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
[2018-11-13] MEDS ORDERED: HYDROmorphONE/DILAUDID 1 MG/ML INJ IVP PRN (19:15)
--- NOTE | 2018-11-13 19:28 | POSTANESTH ---
Post Anesthetic Evaluation Cardiovascular Status: Normal, Stable Respiratory Status: Normal, Stable Level of Consciousness/Mental Status: Can Participate in Eval Pain Control: Adequate, Prn Tx Ordered Nausea/Vomiting Control: Adequate, Prn Tx Ordered Complications Possibly Related to Anesthesia: None Noted
[2018-11-13] MEDS ORDERED: oxyCODONE IR 5 MG TAB ONE (19:36)
[2018-11-13] MEDS: FAMOTIDINE 20 MG/NACL 50 ML IV SCH (21:55)
[2018-11-14] MEDS: OXYCODONE/APAP 5/325 TAB PO PRN ×2 (05:56→09:07)
[2018-11-14] MEDS: FAMOTIDINE 20 MG/NACL 50 ML IV SCH ×2 (07:17→22:25)
--- NOTE | 2018-11-14 13:27 | SOAPPROG ---
SOAP Progress Note Assessment/Plan: Assessment: Plan: 11/14/18 13:25 POD 1. L hip CRPP. Doing well. 25% weightbearing L hip fu in 7-10 days for wound check and xrays. NSU followup PRN Gen Surg fu PRN Subjective: POD 1. at bedside. Feeling well. Objective: Vital Signs Temp Pulse Resp BP Pulse Ox 36.8 C 83 18 121/72 H 93 11/14/18 05:12 11/14/18 08:56 11/14/18 07:19 11/14/18 08:56 11/14/18 07:19 Laboratory Results 11/13/18 21:22 11/13/18 21:22 11/13/18 11/14/18 11/15/18 05:59 05:59 05:59 Intake Total 2700 Output Total 1125 Balance 1575 PT 26.2 SEC (12.0-15.0) H 11/13/18 13:45 INR 2.41 (0.83-1.16) H 11/13/18 13:45 AOx 3 minimal pain Dressing cdi thigh soft able to flex hip actively ICD10 Worksheet Patient Problems: Problems Problem Status Onset Fracture of femoral neck Acute Traumatic subarachnoid hemorrhage Acute Concussion with less than 1 hour loss of consciousness Active Fracture of acetabulum Active Kevan hematuria Active Multiple abrasions Acute Right rib fracture Acute
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
--- NOTE | 2018-11-14 15:02 | SOAPPROG ---
SOAP Progress Note Assessment/Plan: Assessment: comfortable, afebrile/ ambulating better no headaches or other head trauma sx heent ok chest clear cor rr abd soft, nontender neuro physiologic extrem full rom and pulses Plan:home in am if cleared by PT 11/14/18 15:00 Objective: Vital Signs Temp Pulse Resp BP Pulse Ox 36.8 C 73 18 121/72 H 94 11/14/18 05:12 11/14/18 11:12 11/14/18 07:19 11/14/18 08:56 11/14/18 11:12 Laboratory Results 11/13/18 21:22 11/13/18 21:22 11/13/18 11/14/18 11/15/18 05:59 05:59 05:59 Intake Total 2700 Output Total 1125 Balance 1575 PT 26.2 SEC (12.0-15.0) H 11/13/18 13:45 INR 2.41 (0.83-1.16) H 11/13/18 13:45 ICD10 Worksheet Patient Problems: Problems Problem Status Onset Fracture of femoral neck Acute Traumatic subarachnoid hemorrhage Acute Concussion with less than 1 hour loss of consciousness Active Fracture of acetabulum Active Kevan hematuria Active Multiple abrasions Acute Right rib fracture Acute
[2018-11-14] MEDS ORDERED: MAGNESIUM HYDROXIDE 30 ML UDCUP PO PRN (15:43)
[2018-11-14] MEDS ORDERED: LACTULOSE 20 GM/30 ML UDCUP PO PRN (15:43)
[2018-11-14] MEDS ORDERED: BISACODYL 10 MG SUPP PR PRN (15:43)
[2018-11-14] MEDS: POLYETHYLENE GLYCOL 3350 17 GM PKT PO PRN (16:01)
[2018-11-14] MEDS ORDERED: TEMAZEPAM 15 MG CAP PO PRN (20:00)
[2018-11-14] MEDS: SENNOSIDES/DOCUSATE SODIUM TAB PO SCH (22:25)
[2018-11-15] MEDS: oxyCODONE IR 5 MG TAB PO PRN ×2 (06:00→10:13)
[2018-11-15] MEDS ORDERED: WARFARIN SODIUM 2 MG TAB PO SCH (08:00)
[2018-11-15] MEDS ORDERED: Herbals/Supplements -Info Only PO SCH (09:00)
[2018-11-15] MEDS ORDERED: MULTIVITAMINS 1 EACH TAB PO SCH (09:00)
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
[2018-11-15] MEDS: SENNOSIDES/DOCUSATE SODIUM TAB PO SCH (10:13)
[2018-11-15] MEDS: POLYETHYLENE GLYCOL 3350 17 GM PKT PO PRN (10:15)
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
[2018-11-15] MEDS: FAMOTIDINE 20 MG/NACL 50 ML IV SCH (10:42)
[2018-11-15 11:27] VITALS: BP 154/80
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
--- NOTE | 2018-11-15 15:30 | ASMTCMCOM ---
CM Note CM Note Notes: PT rec outpatient, OT rec [facility]. Pt medically stable for d/c with [facility] PT/OT. Date Signed: 11/15/2018 03:30 PM Electronically Signed By:PA Robles
[2018-11-16] MEDS ORDERED: WARFARIN SODIUM 2 MG TAB PO SCH (08:00)
--- NOTE | 2018-11-16 09:33 | ASMTLACE ---
LACE Length of stay for Answers: 3 days current admission Acuity / Level of Answers: Yes Care: Did the patient have an inpatient admission? Comorbidities - select Answers: Other Notes: Pe/DVT all that apply # of Emergency department Answers: 1-2 visits in the last 6 months Score: 8 Date Signed: 11/16/2018 09:32 AM Electronically Signed By:PA Robles
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
== END 2018-11-15 16:34 | disposition home health service (06) | DRG 956 ==
LOC: EDUNIT# → F3N 15:16
PROVIDERS: ADMIT Surgery; ATTEND Surgery
PROC: 0QS734Z Reposition Left Upper Femur with Internal Fixation Device, Percutaneous Approach (ICD-10-PCS; principal; 2018-11-13 17:00)
DX: S72.002A Fracture of unspecified part of neck of left femur, initial encounter for closed fracture (principal); S06.6X9A Traumatic subarachnoid hemorrhage with loss of consciousness of unspecified duration, initial encounter; V18.0XXA Pedal cycle driver injured in noncollision transport accident in nontraffic accident, initial encounter; Y93.55 Activity, bike riding; Y92.482 Bike path as the place of occurrence of the external cause; Z86.718 Personal history of other venous thrombosis and embolism; Z79.01 Long term (current) use of anticoagulants; Z87.891 Personal history of nicotine dependence; Z96.641 Presence of right artificial hip joint; R40.2412 Glasgow coma scale score 13-15, at arrival to emergency department
CPT/HCPCS: 96374; 97116-GP; 97162-GP; 97166-GO; 97535-GO; C1713; C1769; J0690; J1100; J1170; J2250; J2270; J2405; J2704; J2795; J3010